=== PATIENT | female | born 1990 ===

== ENCOUNTER 2018-05-26 19:36 | Inpatient (IN) | payer OTHER ==
[~2018-05-26] VITALS: Ht 152.4 cm; Wt 66.2 kg
[2018-05-26] MEDS ORDERED: PRENATABS RX T1 EACH PO (21:07)
== END 2018-05-30 14:56 | disposition home or self-care (01) | DRG 807 ==
LOC: OBS/DEL 19:36 → LDR 05-27 11:08 → OB/GYN 05-28 10:39
PROVIDERS: ADMIT Obstetrics & Gynecology
PROC: 3E033VJ Introduction of Other Hormone into Peripheral Vein, Percutaneous Approach (ICD-10-PCS; 2018-05-27)
PROC: 4A1HXCZ Monitoring of Products of Conception, Cardiac Rate, External Approach (ICD-10-PCS; 2018-05-27)
PROC: 10E0XZZ Delivery of Products of Conception, External Approach (ICD-10-PCS; principal; 2018-05-28)
DX: O80 Encounter for full-term uncomplicated delivery (principal); Z37.0 Single live birth; Z3A.37 37 weeks gestation of pregnancy